=== PATIENT | female | born 1990 | race African-American/Black ===

== ENCOUNTER 2023-05-20 11:37 | Outpatient (REF) | payer MEDICAID, SELFPAY ==
[2023-05-20 13:15] LABS: MANUAL DIFF FLAG NO
[2023-05-20 14:02] LABS: Basophils Absolute Auto 0.1 X10*3/uL (0.0-0.2); Basophils Percent Auto 1.1 % (0-2); Eosinophils Absolute Auto 0.1 X10*3/uL (0.0-0.4); Hematocrit 42.6 % (37.0-47.0); Hemoglobin 14.1 g/dl (12.0-16.0); Imm Gran Abs Auto 0.03 X10*3/uL (0.00-0.03); Imm Gran Pct Auto 0.5 % (0.0-0.4); Lymphocytes Absolute Auto 2.5 X10*3/uL (1.2-4.9); Lymphocytes Percent Auto 39.4 % (20-40); Mean Corpuscular HGB Conc 33.1 g/dl (31.0-35.0); Mean Corpuscular Hemoglobin 28.8 pg (27.0-33.0); Mean Corpuscular Volume 86.9 fL (80.0-98.0); Mean Platelet Volume 10.5 fL (9.4-12.3); Monocytes Absolute Auto 0.6 X10*3/uL (0.1-1.2); Monocytes Percent Auto 10.2 % (2-11); Neutrophils Percent Auto 47.8 % (45-73); Platelet Count 244 X10*3/uL (160-400); Red Cell Distribution Width 11.5 % (11.0-16.0); White Blood Count 6.3 X10*3/uL (4.8-10.8)
[2023-05-20 17:40] LABS: Alanine Aminotransferase 12 U/L (0-31); Albumin Level 4.7 g/dL (3.5-5.0); Alkaline Phosphatase 73 U/L (39-117); Anion Gap 16 (12-20); Aspartate Amino Transferase 16 U/L (5-31); Bilirubin Total 0.4 mg/dL (0.0-1.0); Blood Urea Nitrogen 8 mg/dL (9-16); C Reactive Protein < 0.04 mg/dL (< or = 0.50); Calcium 9.6 mg/dL (8.4-10.2); Carbon Dioxide 24 mmol/L (22-29); Chloride 105 mmol/L (96-108); Estimated Glomerular Filt Rate > 60; Glucose Random 66 mg/dL (60-115); Potassium 3.5 mmol/L (3.3-5.1); Sodium 141 mmol/L (135-145); Total Protein 7.2 g/dL (6.5-8.0)
[2023-05-22 15:28] LABS: Transglutaminase Ab IgG <1.0 U/mL; Transglutaminase IgA <1.0 U/mL
== END 2023-05-20 11:38 | disposition home or self-care (01) ==
LOC: HO.LAB 11:37
PROVIDERS: PCP Physician Assistant; Visit Provider Nurse Practitioner
DX: R10.9 Unspecified abdominal pain (principal); R19.7 Diarrhea, unspecified; R14.0 Abdominal distension (gaseous); R19.5 Other fecal abnormalities
CPT/HCPCS: 36415; 80053; 85025; 86003; 86140; 86364; 99203

== ENCOUNTER 2023-05-20 11:37 | Outpatient (AMB) | payer MEDICAID, SELFPAY ==
[2023-05-20 11:41] VITALS: BP 102/53; PULSE 91; BMI 17.9
--- NOTE | 2023-05-20 11:41 | MHC.OFFVIS ---
Intake Vital Signs 05/20/23 11:41 Height 5 ft 4 in Weight 104 lb 0.931 oz BMI 17.9 BP 102/53 L Blood Pressure Location Rt brachial Position Sitting Pulse 91 Intake Visit Reasons: abdominal bloating Intake Note: Patient presents to in office visit today as a new patient for blood in the stoo. CC: Patient states she has been experiencing digestive issues and food sensitivities and is trying to get some answers. She also reports occasional blood in her stool, especially when eating gluten, vinegar, dairy products. She also c/o bloating when consuming sugar and having a rectal fissure. Onset more than 10 years ago per PT. Laundry Aide Required: No Accompanied by: Self / Same As Patient Allergies No Known Allergies Allergy (Verified 05/20/23 11:45) HPI abdominal bloating HPI Details 33-YEAR-OLD FEMALE HERE FOR INITIAL EVALUATION of abdominal pain. She is referred by [facility] in [place]. PMX Chronic tension headaches Bipolar disorder/PTSD/childhood trauma. TMJ UPPER RESPIRATORY airway syndrome.. * SURGICAL HISTORY Tonsillectomy Nose reconstruction after dog bite Sinus surgery * ALLERGIES: NKDA * LABS: none in our system, none sent TODAY'S VISIT The problem started in high school she started getting very bloated and gassy with everything I ate. it was worse with sugar, dairy and gluten. She had CIC alt with diarrhea and lethargy. Her gas is malodorous. She also has trouble with pasteurized vinegar. When she has this she will get some blood in my poop. She has trouble digesting nuts unless she soaks them first. When she avoids these foods her BM's are normal formed and daily. She feels she gets anal fissures very quickly, and she has a hx of hemorrhoids and fissures. She has not had any work up for this. She has heard of FODMAP diet but is not formally looked at it. She has not had any food allergy testing to date. She eats a lot veggies and eggs and she grew up not eating meat but she is squeamish about this. She eats a lot of tofu. She feels that there is a r/t stress in the past. She is working with a massage therapist to relax her abdominal muscles. This prompts a discussion about the into make connection between are antigen fight or flight response and the gut. She will have cramping and gas with certain fruits, watermelon all melons, grapes, apples, pears. ROV 6ish weeks. She will having bid jaw surgery and needs to recover before the next appt. [facility] Medical History Trauma in childhood Surgical History H/O rhinoplasty H/O sinus surgery Hx of tonsillectomy Family History Maternal Grandfather Prostate cancer Social History Household Members: Significant Other Housing: Apartment Alcohol intake: never Patient Tobacco Use Status: Never used Tobacco Review of Systems Const Denies fatigue, Denies fever(s), Denies night sweats, Denies poor appetite and Denies weight loss ENT Details: Jaw pain Reports Normal hearing present, Denies dental pain, Denies dysphagia, Denies hearing loss, Denies mouth pain, Denies odynophagia, Denies throat swelling, Denies tongue swelling and Reports other (Dentition adequate) Card Reports no additional complaints Resp Reports no additional complaints GI Reports abdominal pain, Denies melena, Reports bloating, Denies hematochezia, Reports constipation, Denies GI cramping, Denies dysphagia, Denies excessive flatus, Denies early satiety, Denies heartburn, Reports diarrhea, Denies nausea, Denies odynophagia, Denies vomiting and Denies hematemesis Skin/Breast Denies pruritus, Denies lesions, Denies rash and Denies jaundice Neuro Reports Normal hearing present and Denies Abnormal speech present Endo Denies fatigue Aller/Immun Denies throat swelling and Denies tongue swelling Physical Exam Vital Signs: Last Vital Signs Pulse 91 05/20/23 11:41 BP 102/53 L 07/25/23 11:41 BMI result Body Mass Index 17.9 Const General: cooperative, no acute distress, well developed and well groomed Nutritional Appearance: well nourished and thin Orientation/consciousness: oriented to person, oriented to place and oriented to time Limitations: No language barrier HEENT Head: Yes normocephalic and Yes atraumatic Eyes General: appearance normal, both eyes and all related structures Pupils: Equal, round and reactive pupils present Neck Neck: Yes normal visual inspection and Yes no lymphadenopathy Thyroid: Thyroid normal Resp Effort & Inspection: normal respiratory effort and able to speak in complete sentences Auscultation: clear to auscultation bilaterally Cardio Rate: regular rate Rhythm: regular rhythm Heart sounds: Normal, physiologic split S2 sound present Peripheral pulses: radial pulses present and posterior tibial pulses present GI Inspection: No distended and No Abdominal panniculus present Palpation (GI): Soft to palpation, nontender, no guarding, not rigid and No hepatosplenomegaly present Percussion: Yes normal to percussion Auscultation: normal bowel sounds Rectal Exam - Female: deferred Skin General skin exam: no rashes or lesions noted, turgor normal, skin not dry, no jaundice, No spider nevi and no striae Rashes: no rashes Nails: normal Neuro General: oriented to person, oriented to place and oriented to time Cranial nerves: Yes Equal, round and reactive pupils present and Yes Normal hearing present Speech: No Abnormal speech present Extrem General: Yes normal to inspection, No clubbing, No cyanosis and No edema Psych Appearance: grossly normal and well kempt Mental Status: mental status grossly normal Speech and movement: Normal speech and movement present Affect: normal affect Attitude: cooperative Thought process: Normal thought process present and not confabulating Thought content: Normal thought content present Insight: Fair insight present (Psych) Judgement: Fair judgement present (Psych) Assessment & Plan Assessment & Plan (1) Abdominal pain: Code(s): R10.9 - Unspecified abdominal pain Plan: The problem started in high school she started getting very bloated and gassy with everything I ate. it was worse with sugar, dairy and gluten. She had CIC alt with diarrhea and lethargy. Her gas is malodorous. She also has trouble with pasteurized vinegar. When she has this she will get some blood in my poop. She has trouble digesting nuts unless she soaks them first. When she avoids these foods her BM's are normal formed and daily. She feels she gets anal fissures very quickly, and she has a hx of hemorrhoids and fissures. She has not had any work up for this. She has heard of FODMAP diet but is not formally looked at it. She has not had any food allergy testing to date. She eats a lot veggies and eggs and she grew up not eating meat but she is squeamish about this. She eats a lot of tofu. She feels that there is a r/t stress in the past. She is working with a massage therapist to relax her abdominal muscles. This prompts a discussion about the into make connection between are antigen fight or flight response and the gut. She will have cramping and gas with certain fruits, watermelon all melons, grapes, apples, pears. ROV 6ish weeks. She will having bid jaw surgery and needs to recover before the next appt. (2) Diarrhea: Code(s): R19.7 - Diarrhea, unspecified (3) Abdominal bloating: Code(s): R14.0 - Abdominal distension (gaseous) Orders: Orders Comprehensive Met. Panel Today R10.9 - Unspecified abdominal pain, R19.7 - Diarrhea, unspecified Complete Blood Count Auto Diff Today R10.9 - Unspecified abdominal pain, R19.7 - Diarrhea, unspecified Pancreatic Elastase-1 Today R10.9 - Unspecified abdominal pain, R19.7 - Diarrhea, unspecified C Reactive Protein Today R10.9 - Unspecified abdominal pain, R19.7 - Diarrhea, unspecified Rast Allergen Today R10.9 - Unspecified abdominal pain, R19.7 - Diarrhea, unspecified Transglutaminase IgA Today R10.9 - Unspecified abdominal pain, R19.7 - Diarrhea, unspecified Transglutaminase Ab IgG Today R10.9 - Unspecified abdominal pain, R19.7 - Diarrhea, unspecified H Pylori Breath Test Today R10.9 - Unspecified abdominal pain, R19.7 - Diarrhea, unspecified US abdomen limited Today R10.9 - Unspecified abdominal pain, R19.7 - Diarrhea, unspecified Coding Level of Care Code New Pt Level 3 (19118) Diagnoses Abdominal pain R10.9 Diarrhea R19.7 Abdominal bloating R14.0
== END 2023-05-20 12:46 | disposition home or self-care (01) ==
PROVIDERS: PCP Physician Assistant; Visit Provider Nurse Practitioner
DX: R10.9 Unspecified abdominal pain (principal); R19.7 Diarrhea, unspecified; R14.0 Abdominal distension (gaseous)
CPT/HCPCS: 99203

== ENCOUNTER 2023-05-20 14:19 | Outpatient (REF) | payer MEDICAID, SELFPAY ==
[2023-05-25 14:57] LABS: H Pylori Breath Test Negative (Negative)
== END 2023-05-20 14:20 | disposition home or self-care (01) ==
LOC: HO.LNP 14:19
PROVIDERS: Visit Provider Nurse Practitioner
DX: R10.9 Unspecified abdominal pain (principal); R19.7 Diarrhea, unspecified; Z11.0 Encounter for screening for intestinal infectious diseases
CPT/HCPCS: 83013

== ENCOUNTER 2023-05-21 14:14 | Outpatient (REF) | payer MEDICAID, SELFPAY | END 2023-05-21 14:15 | disposition home or self-care (01) | LOC: HO.LNP 14:14 | PROVIDERS: Visit Provider Nurse Practitioner | DX: Z13.89 Encounter for screening for other disorder (principal) | CPT/HCPCS: 83013 ==

== ENCOUNTER 2023-05-21 14:17 | Outpatient (REF) | payer MEDICAID, SELFPAY | END 2023-05-21 14:18 | disposition home or self-care (01) | LOC: HO.LNP 14:17 | PROVIDERS: Visit Provider Nurse Practitioner | DX: Z13.89 Encounter for screening for other disorder (principal) ==

== ENCOUNTER 2023-07-15 10:57 | Outpatient (AMB) | payer MEDICAID, SELFPAY ==
--- NOTE | 2023-07-15 10:59 | A.OFFVIS_ITS ---
Intake Vital Signs 07/15/23 11:01 Height 5 ft 4 in Weight 99 lb BMI 17.0 BP 104/58 L Blood Pressure Location Rt brachial Position Sitting Pulse 88 Intake Visit Reasons: Follow up labs Allergies No Known Allergies Allergy (Verified 05/20/23 11:45) HPI Follow up labs HPI Details Assessment & Plan (1) Abdominal pain: Code(s): R10.9 - Unspecified abdominal pain Plan: The problem started in high school she started getting very bloated and gassy with everything I ate. it was worse with sugar, dairy and gluten. She had CIC alt with diarrhea and lethargy. Her gas is malodorous. She also has trouble with pasteurized vinegar. When she has this she will get some blood in my poop. She has trouble digesting nuts unless she soaks them first. When she avoids these foods her BM's are normal formed and daily. She feels she gets anal fissures very quickly, and she has a hx of hemorrhoids and fissures. She has not had any work up for this. She has heard of FODMAP diet but is not formally looked at it. She has not had any food allergy testing to date. She eats a lot veggies and eggs and she grew up not eating meat but she is squeamish about this. She eats a lot of tofu. She feels that there is a r/t stress in the past. She is working with a massage therapist to relax her abdominal muscles. This prompts a discussion about the into make connection between our ancient fight or flight response and the gut. She will have cramping and gas with certain fruits, watermelon all melons, grapes, apples, pears. ROV 6ish weeks. She will having bid jaw surgery and needs to recover before the next appt. (2) Diarrhea: Code(s): R19.7 - Diarrhea, unspecified (3) Abdominal bloating: Code(s): R14.0 - Abdominal distension (gaseous) Orders: Orders Comprehensive Met. Panel Today R10.9 - Unspecifie d abdominal pain, R19.7 - Diarrhea, unspecified Complete Blood Cou nt Auto Diff Today R10.9 - Unspecifie d abdominal pain, R19.7 - Diarrhea, unspecified Pancreatic Elastas e-1 Today R10.9 - Unspecifie d abdominal pain, R19.7 - Diarrhea, unspecified C Reactive Protein Today R10.9 - Unspecifie d abdominal pain, R19.7 - Diarrhea, unspecified Rast Allergen Today R10.9 - Unspecifie d abdominal pain, R19.7 - Diarrhea, unspecified Transglutaminase I gA Today R10.9 - Unspecifie d abdominal pain, R19.7 - Diarrhea, unspecified Transglutaminase A b IgG Today R10.9 - Unspecifie d abdominal pain, R19.7 - Diarrhea, unspecified H Pylori Breath Te st Today R10.9 - Unspecifie d abdominal pain, R19.7 - Diarrhea, unspecified US abdomen limited Today R10.9 - Unspecifie d abdominal pain, R19.7 - Diarrhea, unspecified LABS: Laboratory Tests 05/20/23 05/20/23 12:46 13:13 WBC 6.3 Hgb 14.1 Hct 42.6 Plt Count 244 Estimated GFR > 60 Total Bilirubin 0.4 AST 16 ALT 12 Alkaline Phosphata se 73 C-Reactive Protein < 0.04 Tiss Transglutamin IgG <1.0 Tiss Transglutamin IgA <1.0 H. pylori Breath T est Negative PANCREATIC ELASTASE TEST WAS NOT RETURN THE RAST PANEL SHOWED NO SIGNIFICANT FOOD ALLERGIES. ULTRASOUND OF THE ABDOMEN NOT OBTAINED CORRESPONDENCE OR On 07/11/23 @ 09:[address] Wrote To Shahid,January FYI- US not done, per centralized scheduling they have tried to contact Pt to schedule US 3 times without any success. I just called her and LVM requesting call back to centralized schedule to schedule US or to our office. She has upcoming F/U appt next Friday07/15/23. TODAY'S VISIT. She has not received the calls from centralized scheduling, so I give her the phone #. She was unaware of the pancreatic elastase, so she will try to get this before we start a trial of the creon, which we agree to. She continues to have cramping and gas particularly with certain trigger foods which has not changed but we have not been able to find any major food allergies or other severe pathology. ROV 6 weeks to eval the creon. [facility] Medical History Trauma in childhood Surgical History H/O sinus surgery H/O rhinoplasty Hx of tonsillectomy Family History Maternal Grandfather Prostate cancer Social History Household Members: Significant Other Housing: Apartment Alcohol intake: never Patient Tobacco Use Status: Never used Tobacco Review of Systems Const Denies fatigue, Denies fever(s), Denies night sweats, Denies poor appetite and Denies weight loss ENT Reports Normal hearing present, Denies dental pain, Denies dysphagia, Denies hearing loss, Denies mouth pain, Denies odynophagia, Denies throat swelling, Denies tongue swelling and Reports other (Dentition adequate) Card Reports no additional complaints Resp Reports no additional complaints GI Denies abdominal pain, Denies melena, Reports bloating, Denies hematochezia, Denies constipation, Reports GI cramping, Denies dysphagia, Reports excessive flatus, Denies early satiety, Denies heartburn, Reports diarrhea, Denies nausea, Denies odynophagia, Denies vomiting and Denies hematemesis Skin/Breast Denies pruritus, Denies lesions, Denies rash and Denies jaundice Neuro Reports Normal hearing present and Denies Abnormal speech present Endo Denies fatigue Aller/Immun Denies throat swelling and Denies tongue swelling Physical Exam Vital Signs: Last Vital Signs Pulse 88 07/15/23 11:01 BP 104/58 L 07/15/23 11:01 BMI result Body Mass Index 17.0 Const General: cooperative, no acute distress, well developed and well groomed Nutritional Appearance: average body habitus and well nourished Orientation/consciousness: oriented to person, oriented to place and oriented to time Limitations: No language barrier HEENT Head: Yes normocephalic and Yes atraumatic Eyes General: appearance normal, both eyes and all related structures Pupils: Equal, round and reactive pupils present Neck Neck: Yes normal visual inspection and Yes no lymphadenopathy Thyroid: Thyroid normal Resp Effort & Inspection: normal respiratory effort and able to speak in complete sentences Auscultation: clear to auscultation bilaterally Cardio Rate: regular rate Rhythm: regular rhythm Heart sounds: Normal, physiologic split S2 sound present Peripheral pulses: radial pulses present and posterior tibial pulses present GI Inspection: No distended and No Abdominal panniculus present Palpation (GI): Soft to palpation, nontender, no guarding, not rigid and No hepatosplenomegaly present Percussion: Yes normal to percussion Auscultation: normal bowel sounds Rectal Exam - Female: deferred Skin General skin exam: no rashes or lesions noted, turgor normal, skin not dry, no jaundice, No spider nevi and no striae Rashes: no rashes Nails: normal Neuro General: oriented to person, oriented to place and oriented to time Cranial nerves: Yes Equal, round and reactive pupils present and Yes Normal hearing present Speech: No Abnormal speech present Extrem General: Yes normal to inspection, No clubbing, No cyanosis and No edema Psych Appearance: grossly normal and well kempt Mental Status: mental status grossly normal Speech and movement: Normal speech and movement present Affect: normal affect Attitude: cooperative Thought process: Normal thought process present and not confabulating Thought content: Normal thought content present Insight: Fair insight present (Psych) Judgement: Fair judgement present (Psych) Results Reviewed Results Reviewed: Laboratory Tests 05/20/23 05/20/23 12:46 13:13 WBC 6.3 Hgb 14.1 Hct 42.6 Plt Count 244 Estimated GFR > 60 Total Bilirubin 0.4 AST 16 ALT 12 Alkaline Phosphatase 73 C-Reactive Protein < 0.04 Tiss Transglutamin IgG <1.0 Tiss Transglutamin IgA <1.0 H. pylori Breath Test Negative PANCREATIC ELASTASE TEST WAS NOT RETURN THE RAST PANEL SHOWED NO SIGNIFICANT FOOD ALLERGIES. Assessment & Plan Assessment & Plan (1) Abdominal bloating: Code(s): R14.0 - Abdominal distension (gaseous) Plan: She has not received the calls from centralized scheduling, so I give her the phone #. She was unaware of the pancreatic elastase, so she will try to get this before we start a trial of the creon, which we agree to. She continues to have cramping and gas particularly with certain trigger foods which has not changed but we have not been able to find any major food allergies or other severe pathology. ROV 6 weeks to eval the creon. (2) Diarrhea: Code(s): R19.7 - Diarrhea, unspecified (3) Abdominal pain: Code(s): R10.9 - Unspecified abdominal pain Medications: New [id number] 24,000-76,000 -120,000 unit (Creon) administer with meals and/or snacks 2 caps PO BID 120 caps 3RF 30 days K58.9 - Irritable bowel syndrome without diarrhea Coding Level of Care Code Est Pt Level 3 (38377) Diagnoses Abdominal bloating R14.0 Diarrhea R19.7 Abdominal pain R10.9
--- NOTE | 2023-07-15 11:00 | A.OFFVIS_ITS ---
Intake Vital Signs 07/15/23 11:01 Height 5 ft 4 in Weight 99 lb BMI 17.0 BP 104/58 L Blood Pressure Location Rt brachial Position Sitting Pulse 88 Intake Visit Reasons: Follow up labs Intake Note: Patient presents to in office visit today in follow up of abdominal pain and labs. CC: Patient reports she has lost weight because she recently had jaw surgery and was on a liquid diet. She states she continues to have same symptoms as before and returns to in office visit today to discuss labs. Certified Coatings Inspector Required: No Accompanied by: Self / Same As Patient Allergies No Known Allergies Allergy (Verified 05/20/23 11:45) [facility] Medical History Trauma in childhood Surgical History H/O sinus surgery H/O rhinoplasty Hx of tonsillectomy Family History Maternal Grandfather Prostate cancer Social History Household Members: Significant Other Housing: Apartment Alcohol intake: never Patient Tobacco Use Status: Never used Tobacco Coding
[2023-07-15 11:01] VITALS: BP 104/58; PULSE 88; BMI 17.0
== END 2023-07-15 11:40 | disposition home or self-care (01) ==
PROVIDERS: PCP Physician Assistant; Visit Provider Nurse Practitioner
DX: R14.0 Abdominal distension (gaseous) (principal); R19.7 Diarrhea, unspecified; R10.9 Unspecified abdominal pain
CPT/HCPCS: 99213

== ENCOUNTER → 2023-07-15 10:57 | Outpatient (BNVA) | payer MEDICAID, SELFPAY | PROVIDERS: PCP Physician Assistant; Visit Provider Nurse Practitioner | DX: R14.0 Abdominal distension (gaseous) (principal); R19.7 Diarrhea, unspecified; R10.9 Unspecified abdominal pain | CPT/HCPCS: 99212 ==

== ENCOUNTER 2023-08-01 17:02 | Outpatient (REF) | payer MEDICAID, SELFPAY ==
[2023-08-11 22:59] LABS: Pancreatic Elastase-1 81 mcg/g
== END 2023-08-01 17:03 | disposition home or self-care (01) ==
LOC: HO.LNP 17:02
PROVIDERS: Visit Provider Nurse Practitioner
DX: R10.9 Unspecified abdominal pain (principal); R19.7 Diarrhea, unspecified
CPT/HCPCS: 82656

== ENCOUNTER 2023-08-26 11:51 | Outpatient (AMB) | payer MEDICAID, SELFPAY ==
--- NOTE | 2023-08-26 11:52 | MHC.OFFVIS ---
Intake Vital Signs 08/26/23 11:53 Height 5 ft 4 in Weight 103 lb 9.876 oz BMI 17.8 BP 103/64 Blood Pressure Location Lt brachial Position Sitting Pulse 94 Intake Visit Reasons: 6 week follow up Intake Note: Dorina presents in the office as a 6 week follow up. CC: She has not been able to schedule the US yet but not having other concerns. Allergies No Known Allergies Allergy (Verified 08/26/23 11:53) HPI 6 week follow up HPI Details Assessment & Plan (1) Abdominal bloating: Code(s): R14.0 - Abdominal distension (gaseous) Plan: She has not received the calls from centralized scheduling, so I give her the phone #. She was unaware of the pancreatic elastase, so she will try to get this before we start a trial of the creon, which we agree to. She continues to have cramping and gas particularly with certain trigger foods which has not changed but we have not been able to find any major food allergies or other severe pathology. ROV 6 weeks to eval the creon. (2) Diarrhea: Code(s): R19.7 - Diarrhea, unspecified (3) Abdominal pain: Code(s): R10.9 - Unspecified abdominal pain Medications: New ngxppw-gnwfiovd-gb ylase 24,000-76,00 0 -120,000 unit (C reon) administe r with meals and/o r snacks 2 caps PO BID 120 caps 3RF 30 days K58.9 - Irritable bowel syndrome wit hout diarrhea Laboratory Tests 08/01/23 15:15 Stool Pancreat Emy stase 81 L CORRESPONDENCE On 07/11/23 @ 09:[address] Wrote To FYI- US not done, per centralized scheduling they have tried to contact Pt to schedule US 3 times without any success. I just called her and LVM requesting call back to centralized schedule to schedule US or to our office. She has upcoming F/U appt next Friday07/15/23. TODAY'S VISIT. She has not yet called Centralized Scheduling for the US. I remind her. The Creon is helping but not completely, will increase the dose and she will play with the timing of the dose. She is excited to have a DX!! Pancreatic elastase very low so = EPI most likely. Obviously will start a trial of Creon. CHIQUITA 6 weeks. Discussed adding lactaid for milk products. There was some question of lactose intolerance. At this point she opts for 6 month follow-up and will call me if the Creon is not effective. [facility] Medical History Trauma in childhood Surgical History H/O sinus surgery H/O rhinoplasty Hx of tonsillectomy Family History Maternal Grandfather Prostate cancer Social History Household Members: Significant Other Housing: Apartment Alcohol intake: never Patient Tobacco Use Status: Never used Tobacco Review of Systems Const Denies fatigue, Denies fever(s), Denies night sweats, Denies poor appetite and Denies weight loss ENT Reports Normal hearing present, Denies dental pain, Denies dysphagia, Denies hearing loss, Denies mouth pain, Denies odynophagia, Denies throat swelling, Denies tongue swelling and Reports other (Dentition adequate) Card Reports no additional complaints Resp Reports no additional complaints GI Denies abdominal pain, Denies melena, Reports bloating, Denies hematochezia, Denies constipation, Reports GI cramping, Denies dysphagia, Denies excessive flatus, Denies early satiety, Denies heartburn, Reports diarrhea, Denies nausea, Denies odynophagia, Denies vomiting and Denies hematemesis Skin/Breast Denies pruritus, Denies lesions, Denies rash and Denies jaundice Neuro Reports Normal hearing present and Denies Abnormal speech present Endo Denies fatigue Aller/Immun Denies throat swelling and Denies tongue swelling Physical Exam Vital Signs: Last Vital Signs Pulse 94 08/26/23 11:53 BP 103/64 08/26/23 11:53 BMI result Body Mass Index 17.8 Const General: cooperative, no acute distress, well developed and well groomed Nutritional Appearance: well nourished and thin Orientation/consciousness: oriented to person, oriented to place and oriented to time Limitations: No language barrier HEENT Head: Yes normocephalic and Yes atraumatic Eyes General: appearance normal, both eyes and all related structures Pupils: Equal, round and reactive pupils present Neck Neck: Yes normal visual inspection and Yes no lymphadenopathy Thyroid: Thyroid normal Resp Effort & Inspection: normal respiratory effort and able to speak in complete sentences Auscultation: clear to auscultation bilaterally Cardio Rate: regular rate Rhythm: regular rhythm Heart sounds: Normal, physiologic split S2 sound present Peripheral pulses: radial pulses present and posterior tibial pulses present GI Inspection: No distended and No Abdominal panniculus present Palpation (GI): Soft to palpation, nontender, no guarding, not rigid and No hepatosplenomegaly present Percussion: Yes normal to percussion Auscultation: normal bowel sounds Rectal Exam - Female: deferred Skin General skin exam: no rashes or lesions noted, turgor normal, skin not dry, no jaundice, No spider nevi and no striae Rashes: no rashes Nails: normal Neuro General: oriented to person, oriented to place and oriented to time Cranial nerves: Yes Equal, round and reactive pupils present and Yes Normal hearing present Speech: No Abnormal speech present Extrem General: Yes normal to inspection, No clubbing, No cyanosis and No edema Psych Appearance: grossly normal and well kempt Mental Status: mental status grossly normal Speech and movement: Normal speech and movement present Affect: normal affect Attitude: cooperative Thought process: Normal thought process present and not confabulating Thought content: Normal thought content present Insight: Limited insight present (Psych) Judgement: Limited judgement present (Psych) Assessment & Plan Assessment & Plan (1) Exocrine pancreatic insufficiency: Code(s): K86.81 - Exocrine pancreatic insufficiency Plan: She has not yet called Centralized Scheduling for the US. I remind her. The Creon is helping but not completely, will increase the dose and she will play with the timing of the dose. She is excited to have a DX!! Pancreatic elastase very low so = EPI most likely. Obviously will start a trial of Creon. CHIQUITA 6 weeks. Discussed adding lactaid for milk products. There was some question of lactose intolerance. At this point she opts for 6 month follow-up and will call me if the Creon is not effective. Medications: New kgpiwe-pxczphoj-uxjhgup 36,000-114,000- 180,000 unit (Creon) administer with meals and/or snacks 2 caps PO BID 120 caps 6RF K86.81 - Exocrine pancreatic insufficiency Discontinued cxjtmi-moijdeqh-qywquss 24,000-76,000 -120,000 unit administer with meals and/or snacks Discontinued Reason: Doctor's Order 2 caps PO BID 30 days 120 caps 3RF K58.9 - Irritable bowel syndrome without diarrhea Coding Level of Care Code Est Pt Level 3 (40237) Diagnoses Exocrine pancreatic insufficiency K86.81
[2023-08-26 11:53] VITALS: BP 103/64; PULSE 94; BMI 17.8
== END 2023-08-26 12:26 | disposition home or self-care (01) ==
PROVIDERS: PCP Physician Assistant; Visit Provider Nurse Practitioner
DX: K86.81 Exocrine pancreatic insufficiency (principal)
CPT/HCPCS: 99213

== ENCOUNTER → 2023-08-26 11:51 | Outpatient (BNVA) | payer MEDICAID, SELFPAY | PROVIDERS: PCP Physician Assistant; Visit Provider Nurse Practitioner | DX: K86.81 Exocrine pancreatic insufficiency (principal) | CPT/HCPCS: 99212 ==

== ENCOUNTER 2023-10-14 10:03 | Outpatient (REF) | payer MEDICAID, SELFPAY ==
--- NOTE | ~2023-10-14 | US_ITS ---
EXAMINATION: US ABDOMEN LIMITED CLINICAL INFORMATION: Unspecified abdominal pain. COMPARISON: None available. TECHNIQUE: Real-time imaging of the right upper quadrant abdominal viscera. Limited visualization due to bowel gas. FINDINGS: PANCREAS: Limited visualization of pancreatic tail and head. Imaged portion of pancreatic body is unremarkable. LIVER: Mildly increased hepatic parenchymal heterogeneity and echogenicity which could be associated with hepatocellular disease/hepatic steatosis and substantially limits visualization. GALLBLADDER: No gallstones. No gallbladder wall thickening. COMMON BILE DUCT: Normal in caliber measuring 0.5 cm in diameter. RIGHT KIDNEY: No hydronephrosis. No renal calculi. Limited visualization. The kidney measures 10.7 cm in maximum dimension. FREE FLUID: None. US/US abdomen limited IMPRESSION: Mildly increased hepatic parenchymal heterogeneity and echogenicity which could be associated with hepatocellular disease/hepatic steatosis and substantially limits visualization.
== END 2023-10-14 10:04 | disposition home or self-care (01) ==
LOC: HO.US 10:03
PROVIDERS: Visit Provider Nurse Practitioner
DX: R10.9 Unspecified abdominal pain (principal); R19.7 Diarrhea, unspecified
CPT/HCPCS: 76705

== ENCOUNTER 2024-06-11 14:29 | Outpatient (AMB) | payer MEDICAID, SELFPAY ==
--- NOTE | 2024-06-11 14:49 | A.OFFVIS_ITS ---
Vital Signs 06/11/24 14:52 Height 5 ft 4 in Weight 111 lb 8.862 oz BMI 19.1 BP 107/61 Blood Pressure Location Rt brachial Position Sitting Pulse 86 Intake Visit Reasons: f/u exocrine pancreatic insufficiency Intake Note: Dorina presents in the office today in follow upof exocrine pancreatic insufficiency. CC: She states that she feels like the Creon still not doing much. Denies having any new GI concerns today. 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 I remind her. The Creon is helping but not completely, will increase the dose and she will play with the timing of the dose. She is excited to have a DX!! Pancreatic elastase very low so = EPI most likely. Obviously will start a trial of Creon. ROV 6 weeks. Discussed adding lactaid for milk products. There was some question of lactose intolerance. At this point she opts for 6 month follow-up and will call me if the Creon is not effective. Medications: New gminiu-zufbmrqr-czhmzvd 36,000-114,000- 180,000 unit (Creon) administer with meals and/or snacks 2 caps PO BID 120 caps 6RF K86.81 - Exocrine pancreatic insufficiency Discontinued xpxyno-umqjahlu-cedtmay 24,000-76,000 -120,000 unit administer with meals and/or snacks Discontinued Reason: Doctor's Order 2 caps PO BID 30 days 120 caps 3RF K58.9 - Irritable bowel syndrome without diarrhea ULTRASOUND OF THE ABDOMEN 10/21/23 FINDINGS: PANCREAS: Limited visualization of pancreatic tail and head. Imaged portion of pancreatic body is unremarkable. LIVER: Mildly increased hepatic parenchymal heterogeneity and echogenicity which could be associated with hepatocellular disease/hepatic steatosis and substantially limits visualization. GALLBLADDER: No gallstones. No gallbladder wall thickening. COMMON BILE DUCT: Normal in caliber measuring 0.5 cm in diameter. RIGHT KIDNEY: No hydronephrosis. No renal calculi. Limited visualization. The kidney measures 10.7 cm in maximum dimension. FREE FLUID: None. US/US abdomen limited IMPRESSION: Mildly increased hepatic parenchymal heterogeneity and echogenicity which could be associated with hepatocellular disease/hepatic steatosis and substantially limits visualization. CORRESPONDENCE On 07/11/23 @ 09:[address] Wrote To Niki Shahid FYI- US not done, per centralized scheduling they have tried to contact Pt to schedule US 3 times without any success. I just called her and LVM requesting call back to centralized schedule to schedule US or to our office. She has upcoming F/U appt next Friday07/15/23. TODAY'S VISIT. PATIENT HAS BEEN LOST TO FOLLOW-UP SINCE 07/2023 She did not get the msg to increase the creon to 2 caps tid. Will do this now as she is still having gas, diarrhea and some light RB on TT. The current dose helped, but only a little. She has a lot of immediate bloating and mostly diarrhea but at time CIC. SHe CAN eat uncanned beans, eggs, grapefruit, small mangoes, blueberries, mushrooms, tofu, squash, sprouted nuts, no carrots tomatoes, potatoes, and she has to ferment most fruits. She has very malodorous gas. She does not eat meat as this is how she was raised. increase creon and consider colonoscopy as food allergy testing neg, but yet E PI, ROV 8 week. [facility] Medical History (Updated 06/11/24 @ 14:51 by CAROLE Perry) Abdominal bloating Diarrhea Abdominal pain Trauma in childhood Surgical History H/O sinus surgery H/O rhinoplasty Hx of tonsillectomy Family History Maternal Grandfather Prostate cancer Social History (Reviewed 07/15/23 @ 11:07 by Elian Perez [facility]) Household Members: Significant Other Housing: Apartment Alcohol intake: never Patient Tobacco Use Status: Never used Tobacco Review of Systems Const Denies fatigue, Denies fever(s), Denies night sweats, Denies poor appetite and Denies weight loss Eyes Reports requires corrective lenses ENT Reports Normal hearing present, Denies dental pain, Denies dysphagia, Denies hearing loss, Denies mouth pain, Denies odynophagia, Denies throat swelling, Denies tongue swelling and Reports other (Dentition adequate) Card Reports no additional complaints Resp Reports no additional complaints GI Details: Denies abdominal pain, Denies melena, Reports bloating, Denies hematochezia, Denies constipation, Denies GI cramping, Denies dysphagia, Reports excessive flatus, Denies early satiety, Denies heartburn, Reports diarrhea, Denies nausea, Denies odynophagia, Denies vomiting and Denies hematemesis Skin/Breast Denies pruritus, Denies lesions, Denies rash and Denies jaundice Neuro Reports Normal hearing present and Denies Abnormal speech present Endo Denies fatigue Aller/Immun Denies throat swelling and Denies tongue swelling Physical Exam Vital Signs: Last Vital Signs Pulse 86 06/11/24 14:52 BP 107/61 06/11/24 14:52 BMI result Body Mass Index 19.1 Const General: cooperative, no acute distress, well developed and well groomed Nutritional Appearance: average body habitus and well nourished Orientation/consciousness: oriented to person, oriented to place and oriented to time Limitations: No language barrier HEENT Head: Yes normocephalic and Yes atraumatic Eyes General: appearance normal, both eyes and all related structures Pupils: Equal, round and reactive pupils present Neck Neck: Yes normal visual inspection and Yes no lymphadenopathy Thyroid: Thyroid normal Resp Effort & Inspection: normal respiratory effort and able to speak in complete sentences Auscultation: clear to auscultation bilaterally Cardio Rate: regular rate Rhythm: regular rhythm Heart sounds: Normal, physiologic split S2 sound present Peripheral pulses: radial pulses present and posterior tibial pulses present GI Inspection: No distended and No Abdominal panniculus present Palpation (GI): Soft to palpation, nontender, no guarding, not rigid and No hepatosplenomegaly present Percussion: Yes normal to percussion Auscultation: normal bowel sounds Rectal Exam - Female: deferred Skin General skin exam: no rashes or lesions noted, turgor normal, skin not dry, no jaundice, No spider nevi and no striae Rashes: no rashes Nails: normal Neuro General: oriented to person, oriented to place and oriented to time Cranial nerves: Yes Equal, round and reactive pupils present and Yes Normal hearing present Speech: No Abnormal speech present Extrem General: Yes normal to inspection, No clubbing, No cyanosis and No edema Psych Appearance: grossly normal and well kempt Mental Status: mental status grossly normal Speech and movement: Normal speech and movement present Affect: normal affect Attitude: cooperative Thought process: Normal thought process present and not confabulating Thought content: Normal thought content present Insight: Limited insight present (Psych) Judgement: Limited judgement present (Psych) Assessment & Plan Assessment & Plan (1) Exocrine pancreatic insufficiency: Code(s): K86.81 - Exocrine pancreatic insufficiency Category: Medical Plan PATIENT HAS BEEN LOST TO FOLLOW-UP SINCE 07/2023 She did not get the msg to increase the creon to 2 caps tid. Will do this now as she is still having gas, diarrhea and some light RB on TT. The current dose helped, but only a little. She has a lot of immediate bloating and mostly diarrhea but at time CIC. SHe CAN eat uncanned beans, eggs, grapefruit, small mangoes, blueberries, mushrooms, tofu, squash, sprouted nuts, no carrots tomatoes, potatoes, and she has to ferment most fruits. She has very malodorous gas. She does not eat meat as this is how she was raised. increase creon and consider colonoscopy as food allergy testing neg, but yet EPI, ROV 8 week. Coding Level of Care Code Est Pt Level 3 (66606) Diagnoses Exocrine pancreatic insufficiency K86.81
[2024-06-11 14:52] VITALS: BP 107/61; PULSE 86; BMI 19.1
== END 2024-06-11 15:45 | disposition home or self-care (01) ==
PROVIDERS: PCP Physician Assistant; Visit Provider Nurse Practitioner
DX: K86.81 Exocrine pancreatic insufficiency (principal)
CPT/HCPCS: 99213

== ENCOUNTER → 2024-06-11 14:29 | Outpatient (BNVA) | payer MEDICAID, SELFPAY | PROVIDERS: PCP Physician Assistant; Visit Provider Nurse Practitioner | DX: K86.81 Exocrine pancreatic insufficiency (principal); K58.9 Irritable bowel syndrome, unspecified | CPT/HCPCS: 99212 ==

== ENCOUNTER 2024-07-27 14:52 | Outpatient (AMB) | payer MEDICAID, SELFPAY ==
--- NOTE | 2024-07-27 14:56 | A.OFFVIS_ITS ---
Vital Signs 07/27/24 14:58 Height 5 ft 4 in Weight 108 lb 0.424 oz BMI 18.5 BP 103/52 L Blood Pressure Location Lt brachial Position Sitting Pulse 83 Intake Visit Reasons: 8 week follow up Intake Note: Dorina presents in the office as a 8 week follow up. CC: She states that she is not having any concerns at this time. Editor Index Required: No Allergies No Known Allergies Allergy (Verified 07/27/24 14:59) HPI HPI 8 week follow up: Details: Assessment & Plan (1) Exocrine pancreatic insufficiency: Code(s): K86.81 - Exocrine pancreatic insufficiency Category: Medical Plan PATIENT HAS BEEN LOST TO FOLLOW-UP SINCE 07/2023 She did not get the msg to increase the creon to 2 caps tid. Will do this now as she is still having gas, diarrhea and some light RB on TT. The current dose helped, but only a little. She has a lot of immediate bloating and mostly diarrhea but at time CIC. SHe CAN eat uncanned beans, eggs, grapefruit, small mangoes, blueberries, mushrooms, tofu, squash, sprouted nuts, no carrots tomatoes, potatoes, and she has to ferment most fruits. She has very malodorous gas. She does not eat meat as this is how she was raised. increase creon and consider colonoscopy as food allergy testing neg, but yet EPI, ROV 8 week. TODAY'S VISIT. She is taking 2 caps 3 times a day and she has found that this has made some improvement in her gas bloating and diarrhea. However it is certainly not completely resolved. She does note is that she is having less rectal bleeding which is certainly encouraging. She also notes less malodorous gas although she still has this at times. She is also encouraged by her improvement even though were not there. I suggest that we go to 8 capsules a day she can divide it for 4 or do it with meals whatever seems to work best for her. Return office visit in 8 weeks. [facility] Medical History Abdominal bloating Diarrhea Abdominal pain Trauma in childhood Surgical History H/O sinus surgery H/O rhinoplasty Hx of tonsillectomy Family History Maternal Grandfather Prostate cancer Social History Household Members: Significant Other Housing: Apartment Alcohol intake: never Patient Tobacco Use Status: Never used Tobacco Review of Systems Const Denies fatigue, Denies fever(s), Denies night sweats, Denies poor appetite and Denies weight loss ENT Reports Normal hearing present, Denies dental pain, Denies dysphagia, Denies hearing loss, Denies mouth pain, Denies odynophagia, Denies throat swelling, Denies tongue swelling and Reports other (Dentition adequate) Card Reports no additional complaints Resp Reports no additional complaints GI Details: Denies abdominal pain, Denies melena, Reports bloating, Denies hematochezia, Denies constipation, Denies GI cramping, Denies dysphagia, Reports excessive flatus, Denies early satiety, Denies heartburn, Reports diarrhea, Denies nausea, Denies odynophagia, Denies vomiting and Denies hematemesis Skin/Breast Denies pruritus, Denies lesions, Denies rash and Denies jaundice Neuro Reports Normal hearing present and Denies Abnormal speech present Endo Denies fatigue Aller/Immun Denies throat swelling and Denies tongue swelling Physical Exam Vital Signs: Last Vital Signs Pulse 83 07/27/24 14:58 BP 103/52 L 07/27/24 14:58 BMI result Body Mass Index 18.5 Const General: cooperative, no acute distress, well developed and well groomed Nutritional Appearance: average body habitus and well nourished Orientation/consciousness: oriented to person, oriented to place and oriented to time Limitations: No language barrier HEENT Head: Yes normocephalic and Yes atraumatic Eyes General: appearance normal, both eyes and all related structures Pupils: Equal, round and reactive pupils present Neck Neck: Yes normal visual inspection and Yes no lymphadenopathy Thyroid: Thyroid normal Resp Effort & Inspection: normal respiratory effort and able to speak in complete sentences Auscultation: clear to auscultation bilaterally Cardio Rate: regular rate Rhythm: regular rhythm Heart sounds: Normal, physiologic split S2 sound present Peripheral pulses: radial pulses present and posterior tibial pulses present GI Inspection: No distended and No Abdominal panniculus present Palpation (GI): Soft to palpation, nontender, no guarding, not rigid and No hepatosplenomegaly present Percussion: Yes normal to percussion Auscultation: normal bowel sounds Rectal Exam - Female: deferred Skin General skin exam: no rashes or lesions noted, turgor normal, skin not dry, no jaundice, No spider nevi and no striae Rashes: no rashes Nails: normal Neuro General: oriented to person, oriented to place and oriented to time Cranial nerves: Yes Equal, round and reactive pupils present and Yes Normal hearing present Speech: No Abnormal speech present Extrem General: Yes normal to inspection, No clubbing, No cyanosis and No edema Psych Appearance: grossly normal and well kempt Mental Status: mental status grossly normal Speech and movement: Normal speech and movement present Affect: normal affect Attitude: cooperative Thought process: Normal thought process present and not confabulating Thought content: Normal thought content present Insight: Fair insight present (Psych) Judgement: Fair judgement present (Psych) Assessment & Plan Assessment & Plan (1) Exocrine pancreatic insufficiency: Code(s): K86.81 - Exocrine pancreatic insufficiency Category: Medical Plan She is taking 2 caps 3 times a day and she has found that this has made some improvement in her gas bloating and diarrhea. However it is certainly not completely resolved. She does note is that she is having less rectal bleeding which is certainly encouraging. She also notes less malodorous gas although she still has this at times. She is also encouraged by her improvement even though were not there. I suggest that we go to 8 capsules a day she can divide it for 4 or do it with meals whatever seems to work best for her. Return office visit in 8 weeks. Medications: Changed From ccwfsb-mwlwzuvi-eabfmlu 36,000-114,000- 180,000 unit (Creon) administer with meals and/or snacks 2 caps PO TID 180 caps 6RF K86.81 - Exocrine pancreatic insufficiency To hputmh-mazdursd-snbjjxn 36,000-114,000- 180,000 unit (Creon) administer with meals and/or snacks 4 caps PO BID 240 caps 6RF K86.81 - Exocrine pancreatic insufficiency Coding Level of Care Code Est Pt Level 3 (41811) Diagnoses Exocrine pancreatic insufficiency K86.81
[2024-07-27 14:58] VITALS: BP 103/52; PULSE 83; BMI 18.5
== END 2024-07-27 15:26 | disposition home or self-care (01) ==
PROVIDERS: PCP Physician Assistant; Visit Provider Nurse Practitioner
DX: K86.81 Exocrine pancreatic insufficiency (principal)
CPT/HCPCS: 99213

== ENCOUNTER → 2024-07-27 14:52 | Outpatient (BNVA) | payer MEDICAID, SELFPAY | PROVIDERS: PCP Physician Assistant; Visit Provider Nurse Practitioner | DX: K86.81 Exocrine pancreatic insufficiency (principal); R14.0 Abdominal distension (gaseous); R19.7 Diarrhea, unspecified | CPT/HCPCS: 99212 ==

== ENCOUNTER → 2024-09-28 16:35 | Outpatient (BNVA) | payer MEDICAID, SELFPAY | PROVIDERS: PCP Physician Assistant; Visit Provider Nurse Practitioner | DX: K86.81 Exocrine pancreatic insufficiency (principal); R19.7 Diarrhea, unspecified | CPT/HCPCS: 99212 ==